=== PATIENT | female | born 1970 | race Two or more races ===

== ENCOUNTER 2022-04-02 14:11 | Emergency (ER) | payer OTHER ==
[~2022-04-02] VITALS: Ht 149.9 cm; Wt 51.4 kg
[2022-04-02] MEDS ORDERED: IBUP800T27 PO (16:35)
[2022-04-02 16:41] VITALS: BP 131/97
== END 2022-04-02 17:15 | disposition home or self-care (01) ==
LOC: ER 14:11
DX: S00.03XA Contusion of scalp, initial encounter (principal); E78.5 Hyperlipidemia, unspecified; W22.8XXA Striking against or struck by other objects, initial encounter; Y93.89 Activity, other specified; Y92.89 Other specified places as the place of occurrence of the external cause; Y99.8 Other external cause status
CPT/HCPCS: 70450

== ENCOUNTER 2022-04-12 15:43 | Emergency (ER) | payer OTHER ==
[~2022-04-12] VITALS: Ht 149.9 cm; Wt 52.7 kg
[~2022-04-12 15:43] MED LIST: IBUP800T27 PO
[2022-04-12 16:34] LABS: Basophils # (auto) 0.1 10 ^3/uL (0-0.2); Basophils % (auto) 0.9 % (0.0-2.0); Eosinophils # (auto) 0.2 10 ^3/uL (0-0.8); Eosinophils % (auto) 3.4 % (0.0-7.0); Hematocrit 43.3 % (36.0-46.0); Hemoglobin 14.1 g/dL (12.2-16.2); Lymphocytes # (auto) 1.9 10 ^3/uL (0.4-5.4); Lymphocytes % (auto) 27.1 % (10.0-50.0); Mean Corpuscular Hemoglobin 28.8 pg (28.0-32.0); Mean Corpuscular Hgb Conc. 32.6 g/dL (32.0-36.0); Mean Corpuscular Volume 88.4 fL (80.0-100.0); Monocytes # (auto) 0.6 10 ^3/uL (0-1.3); Neutrophils # (auto) 4.1 10 ^3/uL (1.6-8.6); Neutrophils % (auto) 59.6 % (37.0-80.0); Nucleated Red Blood Cells % 0.1 %; Red Blood Cells 4.89 10^6/uL (4.0-5.20); Red Cell Distribution Width 12.8 % (11.8-14.3); White Blood Cell 6.9 10^3/uL (4.4-10.8)
[2022-04-12 16:49] LABS: Potassium 3.7 mmol/L (3.5-5.1)
[2022-04-12 16:52] LABS: BUN/Creatinine Ratio 14.1; Bilirubin, Total 0.3 mg/dL (0.2-1.0); Total Protein 7.6 g/dL (6.4-8.2)
[2022-04-12 18:48] VITALS: BP 136/89
== END 2022-04-12 17:33 | disposition home or self-care (01) ==
LOC: ER 15:43
DX: R51.9 Headache, unspecified (principal); E78.5 Hyperlipidemia, unspecified
CPT/HCPCS: 36415; 70450; 80053; 84484; 85025